=== PATIENT | male | born 1945 | race Caucasian/White ===

== ENCOUNTER 2023-07-12 10:20 | Emergency (ER) | payer MEDICARE, BC, OTHER ==
[~2023-07-12] VITALS: Ht 182.9 cm; Wt 89.5 kg
[2023-07-12 10:31] VITALS: TEMP 97.5
[2023-07-12] MEDS ORDERED: NS 1,000 ML IV SCH (10:45)
[2023-07-12 10:56] LABS: BASO % 0.3 % (0.0-2.0); EOS % 0.1 % (0.0-4.0); GRAN % 80.4 % (42.2-75.2); HEMATOCRIT 44.5 % (42.0-52.0); HEMOGLOBIN 14.9 g/dl (13.5-18.0); LYMPH # 0.7 K/mm3 (1.2-3.4); LYMPH % 8.8 % (20.0-51.0); MEAN CELL VOLUME 83 fl (80.0-100.0); MEAN CORPUSCULAR HEMOGLOBIN 28 pg (27-31); MEAN CORPUSCULAR HGB CONC 34 g/dl (33.0-37.0); MEAN PLATELET VOLUME 9.3 fl (7.4-10.4); MONO # 0.7 K/mm3 (0.1-0.6); PLATELET COUNT 149 K/mm3 (130-400); RED BLOOD COUNT 5.38 M/mm3 (4.20-5.60); REDCELL DISTRIBUTION WIDTH-CV 12.8 % (11.5-14.5)
[2023-07-12 11:14] LABS: ALBUMIN 4.1 gm/dL (3.4-4.8); BILIRUBIN,TOTAL 0.7 mg/dL (0.2-1.2); CALCIUM 9.7 mg/dL (8.4-10.2); CREATININE, serum 1.49 mg/dL (0.72-1.25); POTASSIUM 4.1 mmol/L (3.5-4.5); TOTAL PROTEIN 7.1 gm/dL (6.2-8.1)
[2023-07-12 11:21] LABS: TROPONIN-I 0.025 ng/mL (0.00-0.033)
[2023-07-12 12:08] LABS: COLLECTION METHOD CLEAN CATCH
[2023-07-12 12:45] LABS: PH 5.5 (5.0-8.5); URINE APPEARANCE Clear (CLEAR/HAZY); URINE BLOOD Negative (NEGATIVE); URINE COLOR Yellow (YELLOW); URINE GLUCOSE 2+ (NEGATIVE); URINE KETONE Negative (NEGATIVE); URINE NITRATE Negative (NEGATIVE); URINE PROTEIN(semi-quant) 1+ (NEGATIVE); URINE UROBILINOGEN 0.2 E.U/dL (0.2-1.0)
[2023-07-12 13:03] LABS: SQUAMOUS EPITHELIAL 0-2 /hpf (0-10); URINE RBC 0-2 /hpf (0-2)
[2023-07-12 13:04] LABS: URINE BACTERIA Rare /hpf (NONE SEEN)
[2023-07-12 13:48] VITALS: BP 163/87; PULSE 86
== END 2023-07-12 13:49 | disposition home or self-care (01) ==
LOC: COL.ER 10:20
PROVIDERS: Family Medicine
DX: H83.09 Labyrinthitis, unspecified ear (principal); J10.1 Influenza due to other identified influenza virus with other respiratory manifestations; F17.290 Nicotine dependence, other tobacco product, uncomplicated
CPT/HCPCS: J7030